=== PATIENT | female | born 1940 | race Caucasian/White ===

== ENCOUNTER → 2018-01-11 | Outpatient (CLI) | payer MEDICARE, BC ==
[~2018-01-11] MED LIST: ALEN70TA5 PO; FENO135C4 PO; LEVO88TA4 PO; LOSA25TA5 PO; METO200T47 PO; PANT40TA5 PO
[2018-01-11 12:30] LABS: MICROSCOPIC AUTO
[2018-01-11 12:34] LABS: CULTURE INDICATED? YES
[2018-01-11 12:41] LABS: INTERNATIONAL NORMALIZED RATIO 0.99 (0.93-1.1); PROTHROMBIN TIME 10.2 Seconds (9.6-11.5)
[2018-01-11 12:45] LABS: ALANINE AMINOTRANSFERASE 30 U/L (12-78); ALBUMIN 3.9 g/dL (3.4-5.0); ANION GAP 7 mmol/L (5-15); CALCIUM 9.2 mg/dL (8.5-10.1); CHLORIDE 106 mmol/L (98-107)
[2018-01-11 12:48] LABS: ALKALINE PHOSPHATASE 61 U/L (45-117); BILIRUBIN,TOTAL 0.4 mg/dL (0.2-1.0); CREATININE 0.94 mg/dL (0.55-1.02); TOTAL PROTEIN 7.7 g/dL (6.4-8.2)
[2018-01-11 13:11] LABS: BASOPHILS # (AUTO) 0.04 x10^3/uL (0-0.1); BASOPHILS % (AUTO) 0 % (0-1); EOSINOPHILS # (AUTO) 0.19 x10^3/uL (0-0.4); EOSINOPHILS % (AUTO) 2 % (1-7); LYMPHOCYTES # (AUTO) 2.84 x10^3/uL (1-3.4); LYMPHOCYTES % (AUTO) 33 % (22-44); MD NO; MEAN CORPUSCULAR HEMOGLOBIN 29.2 pg (27.0-34.8); MEAN CORPUSCULAR HGB CONC 33.9 g/dL (32.4-35.8); MEAN PLATELET VOLUME 8.1 fL (7.4-10.4); MONOCYTES # (AUTO) 0.79 x10^3/uL (0.2-0.8); MONOCYTES % (AUTO) 9 % (2-9); NEUTROPHILS # (AUTO) 4.67 x10^3/uL (1.8-6.8); NEUTROPHILS % (AUTO) 55 % (42-75); PLATELET COUNT 400 x10^3/uL (130-400); RED BLOOD COUNT 4.72 x10^6/uL (3.82-5.3); RED CELL DISTRIBUTION WIDTH 13.3 % (9.6-15.2)
== END | disposition home or self-care (01) ==
LOC: STAR 11:17
PROVIDERS: ATTEND Neurological Surgery
DX: Z01.818 Encounter for other preprocedural examination (principal); I51.7 Cardiomegaly; M48.062 Spinal stenosis, lumbar region with neurogenic claudication; M51.36 Other intervertebral disc degeneration, lumbar region; S42.011 Anterior displaced fracture of sternal end of right clavicle; X58.XXXD Exposure to other specified factors, subsequent encounter
CPT/HCPCS: 36415; 71046; 80053; 81001; 85025; 85610; 85730; 87086; 93005

== ENCOUNTER 2018-01-20 07:14 | Day surgery (SDC) | payer MEDICARE, BC ==
[2018-01-11 11:59] VITALS: BP 187/69
[~2018-01-20] VITALS: Ht 160 cm; Wt 91.0 kg
[~2018-01-20 07:14] MED LIST changes: +BACITRACIN 50,000 UNIT ONE; +BUPIVACAINE 0.25% ONE; +EPINEPHRINE 1 MG/ML, 1ML ONE; +THROMBIN 5,000 UNIT VIAL TP ONE
[2018-01-20] MEDS ORDERED: GABAPENTIN 300 MG CAPSULE PO STA (07:50)
[2018-01-20] MEDS ORDERED: ONDANSETRON ODT 8 MG PO STA (07:50)
[2018-01-20] MEDS ORDERED: ACETAMINOPHEN 500 MG TABLET PO STA (07:50)
[2018-01-20] MEDS ORDERED: LACTATED RINGERS 1,000 ML IV SCH (08:04)
[2018-01-20] MEDS ORDERED: LIDOCAINE-MPF 1%, 2ML INFIL ONE (08:30)
[2018-01-20] MEDS ORDERED: FENTANYL PF 250 MCG/5ML ONE (08:34)
[2018-01-20] MEDS ORDERED: MIDAZOLAM 1 MG/ML, 2ML ONE (08:34)
[2018-01-20] MEDS ORDERED: LIDOCAINE-MPF 2% ,5ML ONE (08:36)
[2018-01-20] MEDS ORDERED: PROPOFOL 10 MG/ML, 20ML ONE (08:36)
[2018-01-20] MEDS ORDERED: SUCCINYLCHOLINE 20 MG/ML, 10ML ONE (08:38)
[2018-01-20] MEDS ORDERED: PHENYLEPHRINE 10 MG/ML ONE (08:39)
[2018-01-20] MEDS ORDERED: WATER-INJECTION,STERILE 10 ML IV ONE (08:40)
[2018-01-20] MEDS ORDERED: CEFAZOLIN 1,000 MG ONE ×2 (08:40)
[2018-01-20] MEDS ORDERED: DEXAMETHASONE 4 MG/ML, 1ML ONE ×2 (09:09)
[2018-01-20] MEDS ORDERED: BUPIVACAINE/PF 0.25% INFIL ONE ×2 (09:40→11:07)
[2018-01-20] MEDS ORDERED: OXYcodone 5 MG/5 ML ORAL.SOL UDC PO PRN (10:00)
[2018-01-20] MEDS ORDERED: PROMETHAZINE 25 MG/ML, 1ML IV PRN (10:00)
[2018-01-20] MEDS ORDERED: LABETALOL 5MG/ML, 20ML IV PRN (10:00)
[2018-01-20] MEDS ORDERED: FENTANYL PF 100 MCG/2ML IV PRN (10:00)
[2018-01-20] MEDS ORDERED: MEPERIDINE/PF 25MG/0.5ML IVPush PRN (10:00)
[2018-01-20] MEDS ORDERED: HALOPERIDOL 5 MG/ML IV PRN (10:00)
[2018-01-20] MEDS ORDERED: hydrALAzine 20 MG/ML, 1ML IV PRN (10:00)
[2018-01-20] MEDS ORDERED: DIAZEPAM 5 MG/ML, 2ML IVPush PRN (10:00)
[2018-01-20] MEDS ORDERED: VANCOMYCIN 1,000 MG ONE (11:00)
[2018-01-20] MEDS ORDERED: VANCOMYCIN 500 MG ONE (11:00)
[2018-01-20] MEDS ORDERED: NEOSTIGMINE 1 MG/ML, 10ML ONE (11:32)
[2018-01-20] MEDS ORDERED: BUPIVACAINE 0.25% ONE (11:32)
[2018-01-20] MEDS ORDERED: GLYCOPYRROLATE 0.4 MG/2 ML, 2ML ONE (11:32)
[2018-01-20] MEDS ORDERED: hydrALAzine 20 MG/ML, 1ML ONE (11:32)
[2018-01-20] MEDS ORDERED: PROMETHAZINE 25 MG/ML, 1ML ONE (11:52)
[2018-01-20] MEDS ORDERED: OXYcodone 5 MG/5 ML ORAL.SOL UDC ONE (11:58)
[2018-01-20] MEDS ORDERED: HYDROmorphone 2 MG/ML, 1ML ONE (12:41)
[2018-01-20] MEDS: HYDROmorphone 1 MG/ML, 1ML IV PRN ×2 (12:43→12:53)
== END 2018-01-20 17:20 | disposition home or self-care (01) ==
LOC: OUT 07:14
PROVIDERS: ATTEND Neurological Surgery
DX: M51.16 Intervertebral disc disorders with radiculopathy, lumbar region (principal); M48.062 Spinal stenosis, lumbar region with neurogenic claudication; E66.9 Obesity, unspecified; I10 Essential (primary) hypertension; E03.9 Hypothyroidism, unspecified; Z98.890 Other specified postprocedural states; Z68.35 Body mass index [BMI] 35.0-35.9, adult; Z88.1 Allergy status to other antibiotic agents
CPT/HCPCS: 63030; 63035; 72100; J0171; J0330; J0360; J0690; J1100; J1170; J2250; J2370; J2550; J2704; J3010; J3370; J3490; J7120; Q0162

== ENCOUNTER 2018-01-23 14:40 | Emergency (ER) | payer MEDICARE, BC ==
[~2018-01-23] VITALS: Ht 160 cm; Wt 89.0 kg
[~2018-01-23 14:40] MED LIST changes: -BACITRACIN 50,000 UNIT ONE; -BUPIVACAINE 0.25% ONE; -EPINEPHRINE 1 MG/ML, 1ML ONE; -THROMBIN 5,000 UNIT VIAL TP ONE
[2018-01-23 14:43] VITALS: BP 171/82
[2018-01-23] MEDS ORDERED: HYDR-3237 PO (15:45)
== END 2018-01-23 17:43 | disposition home or self-care (01) ==
LOC: ED 16:00
DX: S92.255A Nondisplaced fracture of navicular [scaphoid] of left foot, initial encounter for closed fracture (principal); X50.1XXA Overexertion from prolonged static or awkward postures, initial encounter; Y93.89 Activity, other specified; Y99.8 Other external cause status; Y92.009 Unspecified place in unspecified non-institutional (private) residence as the place of occurrence of the external cause
CPT/HCPCS: 99284